=== PATIENT | female | born 1995 | race Caucasian/White ===

== ENCOUNTER 2018-12-30 15:20 | Emergency (ER) | payer MEDICAID ==
[~2018-12-30] VITALS: Ht 165.1 cm; Wt 72.7 kg
[2018-12-30 15:22] VITALS: BP 119/57
== END 2018-12-30 16:19 | disposition home or self-care (01) ==
LOC: ER 15:22
DX: F15.10 Other stimulant abuse, uncomplicated (principal); K08.89 Other specified disorders of teeth and supporting structures; R21 Rash and other nonspecific skin eruption; F17.200 Nicotine dependence, unspecified, uncomplicated; Z02.89 Encounter for other administrative examinations; Z13.89 Encounter for screening for other disorder
CPT/HCPCS: 99281

== ENCOUNTER 2019-01-19 14:52 | Emergency (ER) | payer MEDICAID ==
[~2019-01-19] VITALS: Ht 165.1 cm; Wt 52.0 kg
--- NOTE | 2019-01-19 15:08 | NUR ---
seizure pads on.nacho deleon md.We will continue to monitor.
[2019-01-19] MEDS ORDERED: normal saline 1000ML IV soln IVB ONE (15:25)
[2019-01-19 15:57] LABS: BASOPHILS # (AUTO) 0.1 X10'3 (0-0.2); BASOPHILS % (AUTO) 0.7 % (0-1); EOSINOPHILS # (AUTO) 0.1 X10'3 (0-0.9); EOSINOPHILS % (AUTO) 0.8 % (0-6); HEMOGLOBIN 12.6 g/dl (12.0-16.0); LYMPHOCYTES # (AUTO) 2.9 X10'3 (1.1-4.8); LYMPHOCYTES % (AUTO) 33.6 % (21-51); MEAN CORPUSCULAR HEMOGLOBIN 27.5 PG (27.0-31.0); MEAN CORPUSCULAR VOLUME 83.2 FL (78-98); MEAN PLATELET VOLUME 7.8 FL (7.4-10.4); MONOCYTES # (AUTO) 0.6 X10'3 (0-0.9); MONOCYTES % (AUTO) 7.5 % (2-12); NEUTROPHILS % (AUTO) 57.4 % (42-75); PLATELET COUNT 280 X10'3 (140-440); RED BLOOD COUNT 4.57 X10'6 (4.20-5.60); RED CELL DISTRIBUTION WIDTH 16.1 % (11.5-14.5); WHITE BLOOD COUNT 8.6 X10'3 (4.5-11.0)
[2019-01-19 16:10] LABS: ALANINE AMINOTRANSFERASE 29 U/L (12-78); ALBUMIN 3.6 G/DL (3.4-5.0); ALKALINE PHOSPHATASE 64 IU/L (46-116); ANION GAP 8 (8-16); ASPARTATE AMINO TRANSFERASE 18 U/L (10-37); BILIRUBIN,TOTAL 0.5 MG/DL (0.1-1.0); BLOOD UREA NITROGEN 14 MG/DL (7-18); CALCIUM 8.6 MG/DL (8.5-10.1); CHLORIDE 104 MMOL/L (99-107); GLUCOSE 86 MG/DL (70-104); POTASSIUM 4.6 MMOL/L (3.5-5.1); SODIUM 137 MMOL/L (135-145); TOTAL CARBON DIOXIDE 25.2 MMOL/L (24-32); TOTAL PROTEIN 7.1 G/DL (6.4-8.2); eGFR > 90 ML/MIN
--- NOTE | 2019-01-19 16:26 | NUR ---
DR RODRIGUEZ SPOKE WITH INTERVENTIONAL RADIOLOGIST FOR PROPER SUPPLIES.
[2019-01-19 18:02] LABS: URINE HCG NEGATIVE (NEG)
[2019-01-19 18:06] LABS: CLARITY,URINE CLEAR (Clear); COLOR,URINE YELLOW (Yellow); GLUCOSE, URINE NEGATIVE (Neg); KETONES,URINE NEGATIVE (Neg); LEUKOCYTE ESTERASE ,URINE NEGATIVE (Neg); NITRITES, URINE NEGATIVE (Neg); OCCULT BLOOD,URINE TRACE-INTACT (Neg); PH,URINE 5.5 (4.8-8.0); PROTEIN,URINE NEGATIVE (Neg); URINE AMPHETAMINE SCREEN POSITIVE (Neg); URINE BARBITUATE SCREEN NEGATIVE (Neg); URINE BENZODIAZEPINES SCREEN NEGATIVE (Neg); URINE CANNABINOID SCREEN POSITIVE (Neg); URINE COCAINE SCREEN NEGATIVE (Neg); URINE METHADONE SCREEN NEGATIVE (Neg); URINE OPIATE SCREEN NEGATIVE (Neg); URINE PHENCYCLIDINE SCREEN NEGATIVE (Neg); UROBILINOGEN,URINE 0.2 E.U/dL (0.2-1.0)
[2019-01-19] MEDS ORDERED: AMOX500C2 PO (18:12)
[2019-01-19 18:21] LABS: UA COLLECTION TYPE CLN CATCH MIDSTREAM
[2019-01-19 18:24] VITALS: BP 117/66
[2019-01-19 18:47] LABS: BACTERIA,URINE NONE SEEN /HPF (Neg); RBC,URINE 0-2 /HPF (0-2); SQUAMOUS EPITHELIAL CELL,UR FEW /LPF (FEW); WBC,URINE NONE SEEN /HPF (0-4)
== END 2019-01-19 18:20 | disposition home or self-care (01) ==
LOC: ER 14:52
DX: R56.9 Unspecified convulsions (principal); K02.9 Dental caries, unspecified; J45.909 Unspecified asthma, uncomplicated; F17.200 Nicotine dependence, unspecified, uncomplicated; F15.90 Other stimulant use, unspecified, uncomplicated; Z79.899 Other long term (current) drug therapy; W18.39XA Other fall on same level, initial encounter; Y93.89 Activity, other specified; Y92.89 Other specified places as the place of occurrence of the external cause; Y99.8 Other external cause status
CPT/HCPCS: 36415; 80053; 80305; 81001; 81025; 85025; 99284; J7030

== ENCOUNTER 2019-01-25 13:48 | Emergency (ER) | payer MEDICAID ==
[~2019-01-25] VITALS: Ht 165.1 cm; Wt 55.0 kg
[~2019-01-25 13:48] MED LIST: AMOX500C2 PO
--- NOTE | 2019-01-25 14:41 | NUR ---
I WENT IN PT'S ROOM TO TALK TO HER, PT IS NOT ANSWERING ANY QUESTIONS AT THIS TIME.
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
[2019-01-25 15:36] LABS: URINE HCG NEGATIVE (NEG)
[2019-01-25 15:41] LABS: URINE AMPHETAMINE SCREEN POSITIVE (Neg); URINE BARBITUATE SCREEN NEGATIVE (Neg); URINE BENZODIAZEPINES SCREEN NEGATIVE (Neg); URINE CANNABINOID SCREEN POSITIVE (Neg); URINE COCAINE SCREEN NEGATIVE (Neg); URINE METHADONE SCREEN NEGATIVE (Neg); URINE OPIATE SCREEN NEGATIVE (Neg); URINE PHENCYCLIDINE SCREEN NEGATIVE (Neg)
[2019-01-25 15:41] LABS: BASOPHILS # (AUTO) 0.1 X10'3 (0-0.2); BASOPHILS % (AUTO) 0.9 % (0-1); EOSINOPHILS % (AUTO) 0.3 % (0-6); HEMATOCRIT 39.9 % (35.0-45.0); HEMOGLOBIN 13.3 g/dl (12.0-16.0); LYMPHOCYTES # (AUTO) 3.1 X10'3 (1.1-4.8); LYMPHOCYTES % (AUTO) 39.7 % (21-51); MEAN CORPUSCULAR HEMOGLOBIN 27.2 PG (27.0-31.0); MEAN CORPUSCULAR HGB CONC 33.3 g/dL (33.0-36.5); MEAN CORPUSCULAR VOLUME 81.9 FL (78-98); MEAN PLATELET VOLUME 7.8 FL (7.4-10.4); MONOCYTES # (AUTO) 0.8 X10'3 (0-0.9); MONOCYTES % (AUTO) 10.7 % (2-12); NEUTROPHILS # (AUTO) 3.8 X10'3 (1.8-7.7); NEUTROPHILS % (AUTO) 48.4 % (42-75); PLATELET COUNT 307 X10'3 (140-440); RED BLOOD COUNT 4.88 X10'6 (4.20-5.60); RED CELL DISTRIBUTION WIDTH 16.1 % (11.5-14.5); WHITE BLOOD COUNT 7.8 X10'3 (4.5-11.0)
[2019-01-25 16:01] LABS: ALANINE AMINOTRANSFERASE 33 U/L (12-78); ALBUMIN 4.1 G/DL (3.4-5.0); ALKALINE PHOSPHATASE 76 IU/L (46-116); ANION GAP 11 (8-16); ASPARTATE AMINO TRANSFERASE 25 U/L (10-37); BLOOD UREA NITROGEN 13 MG/DL (7-18); BUN/CREATININE RATIO 19.7 (6.6-38.0); CALCIUM 9.1 MG/DL (8.5-10.1); CHLORIDE 105 MMOL/L (99-107); CREATININE 0.66 MG/DL (0.40-0.90); ETHANOL < 0.010 GM/DL (0.0-0.010); GLUCOSE 89 MG/DL (70-104); POTASSIUM 3.5 MMOL/L (3.5-5.1); SODIUM 142 MMOL/L (135-145); TOTAL CARBON DIOXIDE 25.9 MMOL/L (24-32); TOTAL PROTEIN 8.1 G/DL (6.4-8.2); eGFR > 90 ML/MIN
[2019-01-25 16:06] LABS: ACETAMINOPHEN < 2.0 UG/ML (10-30)
--- NOTE | 2019-01-25 16:11 | NUR ---
Pt. to bed 25 from main ED. Pt. changed into green scrubs per staff as pt. did not participate in changing. Labs and urine were obtained in main ED. Ice water provided. Belongings logged and locked up. Pt. not talking.
--- NOTE | 2019-01-25 16:55 | NUR ---
Packet was faxed to [facility]
--- NOTE | 2019-01-25 17:42 | NUR ---
Pt. lying still in bed, staring out at staff. Pt. states she "just wants a family. Just one vital sign."
--- NOTE | 2019-01-25 19:30 | NUR ---
Pt muttering "bitch" over and over again.
--- NOTE | 2019-01-25 20:00 | NUR ---
Pt agreed to take ativan but just stared at RN during administration attempt. Ativan not given.
[2019-01-25] MEDS ORDERED: LORazepam 1 MG tablet PO PRN (20:05)
--- NOTE | 2019-01-26 03:41 | NUR ---
Pt got out of bed and gave staff the middle finger on the way to the bathroom.
--- NOTE | 2019-01-26 06:10 | NUR ---
Patient making noises and cussing in her bed. She had just been awoken for vital signs. Continue to monitor.
--- NOTE | 2019-01-26 08:10 | NUR ---
Registration with patient and patient signing papers. No distress noted. Continue to monitor.
--- NOTE | 2019-01-26 08:38 | NUR ---
Patient has been throwing paper towels from her bed into the hallway. Patient has been asked not to throw paper and Meche Eaton asked patient to bulk picker her trash and each time she picks it up and throws it in the trash. Continue to monitor.
--- NOTE | 2019-01-26 09:34 | NUR ---
Tech checked the bathroom a little while after patient had gone and found patient had deficated on the floor in the corner of the bathroom. Patient asked about it and she laughed. Patient is laughing inappropriately by herself, in her bed. Then patient was throwing her water. Patient appears to be very psychotic.
--- NOTE | 2019-01-26 10:55 | NUR ---
Patient sitting in her bed and moving her arms around. Patient appears psychotic. Continue to monitor.
--- NOTE | 2019-01-26 12:05 | NUR ---
Patient laying in bed awake. No distress observed. Continue to monitor.
--- NOTE | 2019-01-26 14:48 | NUR ---
Patient playing with her food. No distress observed. Continue to monitor.
[2019-01-26 15:06] LABS: CLARITY,URINE CLOUDY (Clear); COLOR,URINE YELLOW (Yellow); GLUCOSE, URINE NEGATIVE (Neg); KETONES,URINE TRACE mg/dl (Neg); LEUKOCYTE ESTERASE ,URINE NEGATIVE (Neg); NITRITES, URINE NEGATIVE (Neg); OCCULT BLOOD,URINE NEGATIVE (Neg); PROTEIN,URINE NEGATIVE (Neg); UROBILINOGEN,URINE 0.2 E.U/dL (0.2-1.0)
[2019-01-26 15:27] LABS: UA COLLECTION TYPE CLN CATCH MIDSTREAM
[2019-01-26 16:16] LABS: AMORPHOUS URATES 4+; WBC,URINE 0-4 /HPF (0-4)
[2019-01-26 16:17] LABS: BACTERIA,URINE FEW /HPF (Neg); MUCUS STRANDS MODERATE /LPF (Neg); RBC,URINE NONE SEEN /HPF (0-2); SQUAMOUS EPITHELIAL CELL,UR MODERATE /LPF (FEW)
--- NOTE | 2019-01-26 16:53 | NUR ---
ARCHIE FROM [facility] CALLED AND NEEDED TSH, URINE AND PREG TEST. RESULTS FAXED TO [phone]
--- NOTE | 2019-01-26 17:13 | NUR ---
Patient sitting up in bed, no distress observed. Continue to monitor.
--- NOTE | 2019-01-26 19:30 | NUR ---
PT messed her table with food from food tray. Food 95% gone. Tray taken and put away.
--- NOTE | 2019-01-26 20:30 | NUR ---
Pt laying in bed with feet hanging off side of bed. There is some type of stare present towards staff. Will continue to monitor.
--- NOTE | 2019-01-27 02:30 | NUR ---
PT with covers drawn over her moaning with rhythmic movements. Redirected pt. Will continue to monitor.
--- NOTE | 2019-01-27 05:28 | NUR ---
Pt has been sitting up in bed laughing for 1.5 hrs.
[2019-01-27 05:50] VITALS: BP 105/60
--- NOTE | 2019-01-27 06:31 | NUR ---
PT is awake, alert and laying on right side no signs of distress, will continue to monitor patient.
--- NOTE | 2019-01-27 07:30 | NUR ---
Patient sitting up in bed, staring at nurse's station. no signs of agitation. respirations even, unlabored.
--- NOTE | 2019-01-27 08:31 | NUR ---
Spoke to Leroy Rest PADD on phone and gave nurse to nurse report. RN states she is going to speak with doctor there and get back to us.
--- NOTE | 2019-01-27 09:40 | NUR ---
Patient sitting up in bed, staring ahead of her. no distress. not responding to me talking to her
--- NOTE | 2019-01-27 10:27 | NUR ---
Asked patient if she was doing okay and if we were pronouncing her name correctly. Patient responded appropriately. States doing fine at this time.
--- NOTE | 2019-01-27 10:47 | NUR ---
Second page was sent for [facility] doctors to evaluate patient
--- NOTE | 2019-01-27 11:47 | NUR ---
Patient laying with covers pulled over her head, told patient we would need to see her head. Patient was compliant and listened to instructions.
--- NOTE | 2019-01-27 13:30 | NUR ---
Patient being discharged and transportation driver's education instructor here to garbage pick up man patient.
--- NOTE | 2019-01-27 14:03 | NUR ---
Found multiple areas of crayon drawings on patient's bed and on the top of her side table.
== END 2019-01-27 13:30 ==
LOC: ER 13:48
DX: F94.0 Selective mutism (principal); F15.10 Other stimulant abuse, uncomplicated; F20.9 Schizophrenia, unspecified; F43.10 Post-traumatic stress disorder, unspecified; J45.909 Unspecified asthma, uncomplicated; Z79.899 Other long term (current) drug therapy
CPT/HCPCS: 36415; 80053; 80305; 80320; 80329; 81001; 81025; 84443; 85025; 99285

== ENCOUNTER 2019-12-14 10:49 | Emergency (ER) | payer MEDICAID ==
[~2019-12-14] VITALS: Ht 165.1 cm; Wt 77.3 kg
[2019-12-14 11:56] LABS: BASOPHILS # (AUTO) 0.1 X10'3 (0-0.2); BASOPHILS % (AUTO) 0.5 % (0-1); EOSINOPHILS # (AUTO) 0.3 X10'3 (0-0.9); EOSINOPHILS % (AUTO) 2.7 % (0-6); HEMATOCRIT 43.9 % (35.0-45.0); HEMOGLOBIN 14.7 g/dl (12.0-16.0); LYMPHOCYTES # (AUTO) 3.6 X10'3 (1.1-4.8); LYMPHOCYTES % (AUTO) 33.1 % (21-51); MEAN CORPUSCULAR HEMOGLOBIN 29.5 PG (27.0-31.0); MEAN CORPUSCULAR HGB CONC 33.6 g/dL (33.0-36.5); MEAN CORPUSCULAR VOLUME 87.8 FL (78-98); MEAN PLATELET VOLUME 8.8 FL (7.4-10.4); MONOCYTES % (AUTO) 8.9 % (2-12); NEUTROPHILS % (AUTO) 54.8 % (42-75); PLATELET COUNT 251 X10'3 (140-440); RED BLOOD COUNT 4.99 X10'6 (4.20-5.60); RED CELL DISTRIBUTION WIDTH 13.5 % (11.5-14.5)
[2019-12-14 12:08] LABS: ALANINE AMINOTRANSFERASE 20 U/L (12-78); ALBUMIN 3.7 G/DL (3.4-5.0); ALBUMIN/GLOBULIN RATIO 1.1 (1.1-1.5); ALKALINE PHOSPHATASE 66 IU/L (46-116); ANION GAP 5 (8-16); ASPARTATE AMINO TRANSFERASE 15 U/L (10-37); BILIRUBIN,TOTAL 0.7 MG/DL (0.1-1.0); BLOOD UREA NITROGEN 12 MG/DL (7-18); BUN/CREATININE RATIO 15.4 (6.6-38.0); CALCIUM 8.7 MG/DL (8.5-10.1); CHLORIDE 108 MMOL/L (99-107); CREATININE 0.78 MG/DL (0.40-0.90); GLUCOSE 84 MG/DL (70-104); POTASSIUM 4.1 MMOL/L (3.5-5.1); SODIUM 142 MMOL/L (135-145); TOTAL CARBON DIOXIDE 29.2 MMOL/L (24-32); eGFR 90 ML/MIN
[2019-12-14 12:21] LABS: ETHANOL < 0.010 GM/DL (0.0-0.010)
[2019-12-14 12:26] LABS: CLARITY,URINE SLIGHTLY CLOUDY (Clear); COLOR,URINE YELLOW (Yellow); GLUCOSE, URINE NEGATIVE (Neg); KETONES,URINE NEGATIVE (Neg); LEUKOCYTE ESTERASE ,URINE SMALL (Neg); NITRITES, URINE NEGATIVE (Neg); OCCULT BLOOD,URINE NEGATIVE (Neg); PROTEIN,URINE NEGATIVE (Neg); URINE HCG NEGATIVE (NEG); UROBILINOGEN,URINE 0.2 E.U/dL (0.2-1.0)
[2019-12-14 12:27] LABS: UA COLLECTION TYPE CLN CATCH MIDSTREAM
[2019-12-14 12:32] LABS: URINE AMPHETAMINE SCREEN POSITIVE (Neg); URINE BARBITUATE SCREEN NEGATIVE (Neg); URINE BENZODIAZEPINES SCREEN NEGATIVE (Neg); URINE CANNABINOID SCREEN POSITIVE (Neg); URINE COCAINE SCREEN NEGATIVE (Neg); URINE METHADONE SCREEN NEGATIVE (Neg); URINE OPIATE SCREEN NEGATIVE (Neg); URINE PHENCYCLIDINE SCREEN NEGATIVE (Neg)
[2019-12-14 12:37] LABS: MUCUS STRANDS MANY /LPF (Neg); SQUAMOUS EPITHELIAL CELL,UR MANY /LPF (FEW)
[2019-12-14 12:39] LABS: BACTERIA,URINE FEW /HPF (Neg); RBC,URINE 0-2 /HPF (0-2); TRANSITIONAL EPI CELLS,URINE FEW /HPF; WBC,URINE 30-50 /HPF (0-4)
--- NOTE | 2019-12-14 12:46 | NUR ---
pt denies s/h/i @ this itme. She is responding to internal stimuli AEB her laughing and talking when none present. Tangential thoughts noted also. Pt moderately restless. She can be redirected for brief periods.
[2019-12-14] MEDS: cephalexin 250mg capsule PO SCH ×2 (13:18→20:56)
--- NOTE | 2019-12-14 13:29 | NUR ---
Pt. brought back to overflow room 24 with meal tray, pt. laying on side in bed eating meal. Pt. responding to internal stimuli as evidenced by laughing and talking with no one else present. Pt. appears restless, respirations WNL, no evidence of distress.
[2019-12-14] MEDS ORDERED: hydrOXYzine 25 MG tablet PO ONE (13:50)
[2019-12-14] MEDS ORDERED: nicotine 21mg patch - 24 hr TD ONE (13:50)
[2019-12-14] MEDS ORDERED: UNABLE TO OBTAIN (14:21)
--- NOTE | 2019-12-14 14:23 | NUR ---
Unable to obtain med rec due to patient not knowing current medications, pt. states she does take medications, but does not know the medications or purpose. No recent medications on external med history. Per EMS family reports pt. is non-compliant on medications. Addendum: 12/14/19 at 1604 by JOVANA Attempted to contact family by phone to obtain medication history, no milling supervisor. GENARO Mercedes performed a [employer] search, no information found. Per EMS report pt. previously on "Risperidol and Klonipin"
--- NOTE | 2019-12-14 14:28 | NUR ---
Pt. laying in bed on right side, talking to self.
--- NOTE | 2019-12-14 14:46 | NUR ---
Pt. moved to overflow bed 21 due to verbal argument between her and the pt. in bed 23. Argument began due to pt. in bed 23 becoming agitated due to constant talking coming from pt. Pt. states she "hears people laughing at her". Pt. requested milk, cheese stick, and crakers. Pt. given milk, cheese stick, and crackers.
--- NOTE | 2019-12-14 15:26 | NUR ---
Discussed pt's increased restlessness and new onset hypersexual bx with GENARO Mercedes. New order for Ativan 1mg received. New order communicated to Primary RN Elvin.
[2019-12-14] MEDS ORDERED: LORazepam 1 MG tablet PO ONE (15:30)
--- NOTE | 2019-12-14 16:03 | NUR ---
Pt. experienced new onset of nausea and vomiting. Order for zofran obtained.
[2019-12-14] MEDS ORDERED: ondansetron 4mg rapidly disintigrating tab PO ONE (16:05)
--- NOTE | 2019-12-14 16:15 | NUR ---
Pt. in bed crying, appears restless with frequent position changes, respirations appear even and unlabored.
--- NOTE | 2019-12-14 16:29 | NUR ---
Pt. has vomited again, order obtained for compazine. Pt. is yelling non-coherently, order obtained for ativan.
[2019-12-14] MEDS ORDERED: LORazepam 2 mg/ml vial IM ONE (16:30)
[2019-12-14] MEDS ORDERED: proCHLORperazine 10 MG/2 ml inj IM ONE (16:30)
--- NOTE | 2019-12-14 17:28 | NUR ---
Pt. resting quietly on left side, respirations even and unlabored, no signs or symptoms of distress.
--- NOTE | 2019-12-14 18:11 | NUR ---
[facility] bedsided with pt. Addendum: 12/14/19 at 1827 by STEVEEY Per [facility], pt. too sleepy to assess.
--- NOTE | 2019-12-14 18:34 | NUR ---
Pt. resting quietly in bed, respirations WNL, even and unlabored. No signs or symptoms of distress. Pt. brought meal tray bedside, pt. currently not eating meal offered.
--- NOTE | 2019-12-14 20:25 | NUR ---
Pt. awake intermittently, when awake eating small amounts of food from meal tray.
--- NOTE | 2019-12-14 23:45 | NUR ---
Pt. resting quietly repirations WNL even and unlabored, no signs or symptoms of distress.
--- NOTE | 2019-12-15 01:15 | NUR ---
Pt. resting quietly on left side, respirations WNL even and unlabored, no signs or symptoms of distress.
--- NOTE | 2019-12-15 01:39 | NUR ---
pt appears to be sleeping peacefully on left side, respirations even and unlabored, no s/s distress at this time.
--- NOTE | 2019-12-15 02:32 | NUR ---
pt appears to be sleeping lying on left side. HOB 30 degrees. respirations even and unlabored, no s/s distress at this time
--- NOTE | 2019-12-15 03:30 | NUR ---
pt appears to be sleeping lying on left side. HOB 30 degrees. respirations even and unlabored, no s/s distress at this time. pt repositioning self in bed.
--- NOTE | 2019-12-15 04:42 | NUR ---
pt appears to be sleeping lying on right side. pt in supine position. respirations even and unlabored, no s/s distress at this time
--- NOTE | 2019-12-15 05:49 | NUR ---
pt ambulated to bathroom without issue. returned to bed and now appears to be sleeping lying on left side. pt in supine position. respirations even and unlabored, no s/s distress at this time
--- NOTE | 2019-12-15 06:38 | NUR ---
pt is resting in bed no issues at this time
--- NOTE | 2019-12-15 07:30 | NUR ---
pt is awake
[2019-12-15] MEDS: cephalexin 250mg capsule PO SCH ×2 (08:35→20:22)
--- NOTE | 2019-12-15 08:52 | NUR ---
pt is with [facility]
--- NOTE | 2019-12-15 09:20 | NUR ---
pt wanting to leave the unit. she is asking to take take a shower
[2019-12-15] MEDS ORDERED: diphenhydrAMINE 50 mg/ml inj IM ONE (09:35)
[2019-12-15] MEDS ORDERED: LORazepam 2 mg/ml vial IM ONE (09:35)
[2019-12-15] MEDS ORDERED: haloperidol lactate 5mg/ml inj IM ONE (09:35)
--- NOTE | 2019-12-15 09:38 | NUR ---
breaking primary RN. pt is being eval by [facility], he states he is going to keep her on a 5150, ptis tearful and not wanting to talk to him, she is now ambulating to the bathroom, security standing by
--- NOTE | 2019-12-15 09:43 | NUR ---
pt was retching gave vomit bag, now sticking her finger down her throat to make herself vomit
--- NOTE | 2019-12-15 09:47 | NUR ---
patient again requesting shower, due to vomiting, she was given washcloths, soap and basin etc to clean up in the bathroom
--- NOTE | 2019-12-15 11:00 | NUR ---
pt is sleeping after meds
--- NOTE | 2019-12-15 12:00 | NUR ---
BREAKING PRIMNARY RN, PT IS ASLEEP, REGULAR BREATHING OBSERVED, NO S/S OF AGITATION
--- NOTE | 2019-12-15 13:00 | NUR ---
pt is sleeping. no concerns at this time.
--- NOTE | 2019-12-15 14:00 | NUR ---
pt continues to be sleeping. no issues
--- NOTE | 2019-12-15 15:00 | NUR ---
pt is sleeping
--- NOTE | 2019-12-15 15:00 | NUR ---
Frances acharya in [facility] - 12/15/[address] waiting for social studies department chair regarding dc
--- NOTE | 2019-12-15 16:34 | NUR ---
Frances acharya in [facility] - 12/15/[address] mother and father both called to talking about dc plan. mother's voicemail is not set up and message left for father
--- NOTE | 2019-12-15 16:36 | NUR ---
pt is awake
--- NOTE | 2019-12-15 17:45 | NUR ---
krishna salgado called for a nurse to nurse
--- NOTE | 2019-12-15 18:14 | NUR ---
pt is resting
--- NOTE | 2019-12-15 18:30 | NUR ---
The patient has been accepted at [facility] by Dr. Kelley and will be transported via [facility] staff tomorrow between 0800 and 0830.
--- NOTE | 2019-12-15 18:33 | NUR ---
The patient awakened for her evening meal
[2019-12-15] MEDS ORDERED: ondansetron 4mg rapidly disintigrating tab PO STA (19:44)
--- NOTE | 2019-12-15 19:44 | NUR ---
PT NEEDING [facility]. ED PROVIDER UPDATED AND GAVE VERBAL ORDER FOR MED.
--- NOTE | 2019-12-15 19:51 | NUR ---
The patient was up to use the bathroom and vomited on the floor. Zofran given.
--- NOTE | 2019-12-15 20:34 | NUR ---
The patient is resting quietly on her bed. Was awakened briefly for ABX.
--- NOTE | 2019-12-15 22:32 | NUR ---
The patient is resting on her bed and appears to be sleeping
--- NOTE | 2019-12-16 00:04 | NUR ---
The patient appears to be sleeping
--- NOTE | 2019-12-16 02:16 | NUR ---
The patient appears to be sleeping
--- NOTE | 2019-12-16 03:46 | NUR ---
The patient is awake but resting quietly on her bed
--- NOTE | 2019-12-16 05:42 | NUR ---
PT MOVED TO ED ROOM14. PT AMBULATED TO ROOM WITH NO ASSIST AND CONTINUES TO SLEEP WITH NO SIGNS OF DISTRESS OR DISCOMFORT. WILL CONTINUE TO MONITOR.
--- NOTE | 2019-12-16 06:22 | NUR ---
PT SLEEPING IN LFT LATERA POSITION ,NO DISTRESS NOTED ,REPORT TAKEN FROM JAROD PINON.WILL CONT TO MONITOR.RR UNLABORED AND EVEN.
[2019-12-16 07:06] VITALS: BP 101/63
[2019-12-16] MEDS: cephalexin 250mg capsule PO SCH (08:49)
== END 2019-12-16 09:06 | disposition home or self-care (01) ==
LOC: ER 10:49
DX: F19.10 Other psychoactive substance abuse, uncomplicated (principal); N39.0 Urinary tract infection, site not specified; R45.851 Suicidal ideations; J45.909 Unspecified asthma, uncomplicated; F20.9 Schizophrenia, unspecified; F15.90 Other stimulant use, unspecified, uncomplicated
CPT/HCPCS: 36415; 80053; 80305; 80320; 81001; 81025; 84443; 85025; 96372; 99285; J0780; J1200; J1630; J2060; Q0177; 12034

== ENCOUNTER 2020-06-07 19:18 | Emergency (ER) | payer MEDICAID ==
[~2020-06-07 19:18] MED LIST changes: -AMOX500C2 PO; +ONDA4TAB6 PO; +UNABLE TO OBTAIN
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
--- NOTE | 2020-06-07 20:30 | NUR ---
refused to put slippers on feet states she is very hot and the people in the tank said no to that idea. I asked if the voices she heres tell her to do anything she said yes thats why she is here right now. Rolled over and placed blanket over head and asked to go to sleep that the light bothers her eyes.
--- NOTE | 2020-06-07 21:30 | NUR ---
lying on right side eyes closed no signs of distress.
[2020-06-07 21:37] LABS: BASOPHILS # (AUTO) 0.1 X10'3 (0-0.2); BASOPHILS % (AUTO) 0.6 % (0-1); EOSINOPHILS # (AUTO) 0.1 X10'3 (0-0.9); EOSINOPHILS % (AUTO) 0.4 % (0-6); HEMATOCRIT 40.2 % (35.0-45.0); HEMOGLOBIN 13.4 g/dl (12.0-16.0); LYMPHOCYTES # (AUTO) 2.6 X10'3 (1.1-4.8); LYMPHOCYTES % (AUTO) 16.1 % (21-51); MEAN CORPUSCULAR HEMOGLOBIN 28.5 PG (27.0-31.0); MEAN CORPUSCULAR HGB CONC 33.3 g/dL (33.0-36.5); MEAN CORPUSCULAR VOLUME 85.6 FL (78-98); MEAN PLATELET VOLUME 7.9 FL (7.4-10.4); MONOCYTES # (AUTO) 0.9 X10'3 (0-0.9); MONOCYTES % (AUTO) 5.6 % (2-12); NEUTROPHILS # (AUTO) 12.7 X10'3 (1.8-7.7); NEUTROPHILS % (AUTO) 77.3 % (42-75); PLATELET COUNT 268 X10'3 (140-440); RED BLOOD COUNT 4.69 X10'6 (4.20-5.60); RED CELL DISTRIBUTION WIDTH 14.2 % (11.5-14.5); WHITE BLOOD COUNT 16.4 X10'3 (4.5-11.0)
[2020-06-07 21:52] LABS: ALANINE AMINOTRANSFERASE 26 U/L (12-78); ALBUMIN 3.4 G/DL (3.4-5.0); ALKALINE PHOSPHATASE 77 IU/L (46-116); ANION GAP 5 (8-16); ASPARTATE AMINO TRANSFERASE 14 U/L (10-37); BILIRUBIN,TOTAL 0.4 MG/DL (0.1-1.0); BLOOD UREA NITROGEN 11 MG/DL (7-18); BUN/CREATININE RATIO 13.8 (6.6-38.0); CALCIUM 8.5 MG/DL (8.5-10.1); CHLORIDE 105 MMOL/L (99-107); GLUCOSE 142 MG/DL (70-104); POTASSIUM 3.6 MMOL/L (3.5-5.1); SODIUM 140 MMOL/L (135-145); TOTAL CARBON DIOXIDE 29.9 MMOL/L (24-32); TOTAL PROTEIN 6.7 G/DL (6.4-8.2); eGFR 87 ML/MIN
[2020-06-07 22:01] LABS: ETHANOL < 0.010 GM/DL (0.0-0.010)
--- NOTE | 2020-06-07 22:30 | NUR ---
additional cranberry juice given patietn unable to void refuses i&o cath Addendum: 06/08/20 at 0118 by TAMRA typo for the word patient in above
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
[2020-06-07 23:28] LABS: CLARITY,URINE CLEAR (Clear); COLOR,URINE YELLOW (Yellow); GLUCOSE, URINE NEGATIVE (Neg); KETONES,URINE NEGATIVE (Neg); NITRITES, URINE NEGATIVE (Neg); OCCULT BLOOD,URINE NEGATIVE (Neg); PROTEIN,URINE TRACE mg/dl (Neg); URINE HCG NEGATIVE (NEG)
[2020-06-07 23:31] LABS: LEUKOCYTE ESTERASE ,URINE NEGATIVE (Neg); UROBILINOGEN,URINE 0.2 E.U/dL (0.2-1.0)
[2020-06-07 23:34] LABS: UA COLLECTION TYPE VOIDED
[2020-06-07 23:35] LABS: BACTERIA,URINE 2+ /HPF (Neg); RBC,URINE 0-2 /HPF (0-2); SQUAMOUS EPITHELIAL CELL,UR MANY /LPF (FEW)
[2020-06-07 23:36] LABS: MUCUS STRANDS MODERATE /LPF (Neg)
[2020-06-07 23:40] LABS: URINE AMPHETAMINE SCREEN POSITIVE (Neg); URINE BARBITUATE SCREEN NEGATIVE (Neg); URINE BENZODIAZEPINES SCREEN NEGATIVE (Neg); URINE CANNABINOID SCREEN POSITIVE (Neg); URINE COCAINE SCREEN NEGATIVE (Neg); URINE METHADONE SCREEN NEGATIVE (Neg); URINE OPIATE SCREEN NEGATIVE (Neg); URINE PHENCYCLIDINE SCREEN NEGATIVE (Neg)
--- NOTE | 2020-06-08 00:30 | NUR ---
lying supine respirations even and unlabored no signs of distress.
--- NOTE | 2020-06-08 01:41 | NUR ---
no change, lyin ilir left side eupneic respirations. No signs of distress
--- NOTE | 2020-06-08 02:30 | NUR ---
sleeping on left side no distress observed.
--- NOTE | 2020-06-08 03:30 | NUR ---
eyes closed supine no compaints or signs of distress respiration even and unlabored
--- NOTE | 2020-06-08 04:30 | NUR ---
sleeping on right side no distress observed
--- NOTE | 2020-06-08 05:35 | NUR ---
uneventful night. Patient currnetly sleeping
--- NOTE | 2020-06-08 06:00 | NUR ---
faxed packet to [facility]
--- NOTE | 2020-06-08 06:00 | NUR ---
faxed packet to [facility]
--- NOTE | 2020-06-08 06:28 | NUR ---
Patient on left side asleep.
--- NOTE | 2020-06-08 08:28 | NUR ---
patient up to the bathroom.
--- NOTE | 2020-06-08 09:00 | NUR ---
denies si and hi at this time,patient calm and cooperative with staff.Reports she does have history of si,overdosed herself x1.
--- NOTE | 2020-06-08 09:21 | NUR ---
patient on right side sleeping.
[2020-06-08 09:32] VITALS: BP 103/64
--- NOTE | 2020-06-08 09:40 | NUR ---
breaking primary RN, pt is covered in blankets, regular breathing present, no needs at this time
--- NOTE | 2020-06-08 10:16 | NUR ---
Miriam from [facility] here to speak with patient.
--- NOTE | 2020-06-08 10:21 | NUR ---
patient reports frequency of urination,denies hematuria/dysuria,reports she was taking antibiotic for uti prior to admission.Dr. Muro made aware,new order noted and carried out.
[2020-06-08] MEDS ORDERED: nitrofuran/nitrofuran macrocrysal 100 MG capsule PO SCH (10:29)
--- NOTE | 2020-06-08 11:34 | NUR ---
patient on left side asleep,first dose of antibiotic/uti given,[facility] to plan on discharging patient.
--- NOTE | 2020-06-08 13:37 | NUR ---
angela with [facility] is at bedside talking with pt, she is supine in bed, calmly talking to him
--- NOTE | 2020-06-08 14:19 | NUR ---
called [employer], they will call when on their way
--- NOTE | 2020-06-08 14:41 | NUR ---
PT WAITING FOR DC AND HAS CHANGED INTO [employer] [employer]. PT SITTING UP IN BED WAITING FOR [employer] TO GET HERE.
== END 2020-06-08 15:00 | disposition home or self-care (01) ==
LOC: ER 19:18
DX: R45.851 Suicidal ideations (principal); F29 Unspecified psychosis not due to a substance or known physiological condition; J45.909 Unspecified asthma, uncomplicated; F20.9 Schizophrenia, unspecified; F15.90 Other stimulant use, unspecified, uncomplicated; Z79.899 Other long term (current) drug therapy
CPT/HCPCS: 36415; 80053; 80305; 80320; 81001; 81025; 84443; 85025; 99285

== ENCOUNTER 2020-10-03 14:27 | Emergency (ER) | payer MEDICAID ==
[~2020-10-03] VITALS: Ht 165.1 cm; Wt 94.1 kg
[~2020-10-03 14:27] MED LIST changes: +LIDOcaine 1% 30ml preserv. free vial ONE
[2020-10-03 14:37] VITALS: BP 126/73
[2020-10-03] MEDS ORDERED: TETanus/Pertussis (Acell)/Diphther VAC/PF (Tdap-Adult) 0.5ml syringe IMVAC ONE (15:25)
[2020-10-03] MEDS ORDERED: CEPH250T PO (15:49)
[2020-10-03] MEDS ORDERED: SULF1TAB45 PO (15:49)
[2020-10-03] MEDS ORDERED: ONDA4TAB6 PO (22:23)
[2020-10-03] MEDS ORDERED: PANT20TA18 PO (22:23)
== END 2020-10-03 16:05 | disposition home or self-care (01) ==
LOC: ER 14:28
DX: L02.511 Cutaneous abscess of right hand (principal); L03.011 Cellulitis of right finger; J45.909 Unspecified asthma, uncomplicated; F20.9 Schizophrenia, unspecified; F15.90 Other stimulant use, unspecified, uncomplicated
CPT/HCPCS: 26010; 90471; 90715; 99283; J2001

== ENCOUNTER 2020-10-03 18:22 | Emergency (ER) | payer MEDICAID ==
[~2020-10-03] VITALS: Ht 165.1 cm; Wt 93.0 kg
[~2020-10-03 18:22] MED LIST changes: +CEPH250T PO; -LIDOcaine 1% 30ml preserv. free vial ONE; +SULF1TAB45 PO
[2020-10-03 18:42] VITALS: BP 107/64
[2020-10-03 19:34] LABS: BASOPHILS # (AUTO) 0.1 X10'3 (0-0.2); BASOPHILS % (AUTO) 0.4 % (0-1); EOSINOPHILS % (AUTO) 0.1 % (0-6); HEMATOCRIT 43.1 % (35.0-45.0); HEMOGLOBIN 14.6 g/dl (12.0-16.0); LYMPHOCYTES # (AUTO) 3.3 X10'3 (1.1-4.8); LYMPHOCYTES % (AUTO) 16.7 % (21-51); MEAN CORPUSCULAR HEMOGLOBIN 29.1 PG (27.0-31.0); MEAN CORPUSCULAR HGB CONC 33.9 g/dL (33.0-36.5); MEAN PLATELET VOLUME 7.7 FL (7.4-10.4); MONOCYTES # (AUTO) 1.3 X10'3 (0-0.9); MONOCYTES % (AUTO) 6.6 % (2-12); NEUTROPHILS % (AUTO) 76.2 % (42-75); PLATELET COUNT 427 X10'3 (140-440); RED BLOOD COUNT 5.01 X10'6 (4.20-5.60); RED CELL DISTRIBUTION WIDTH 13.7 % (11.5-14.5); WHITE BLOOD COUNT 19.7 X10'3 (4.5-11.0)
[2020-10-03 19:36] LABS: ALANINE AMINOTRANSFERASE 34 U/L (12-78); ALBUMIN 3.7 G/DL (3.4-5.0); ALBUMIN/GLOBULIN RATIO 0.9 (1.1-1.5); ALKALINE PHOSPHATASE 95 IU/L (46-116); ANION GAP 8 (8-16); ASPARTATE AMINO TRANSFERASE 15 U/L (10-37); BILIRUBIN,TOTAL 0.6 MG/DL (0.1-1.0); BLOOD UREA NITROGEN 10 MG/DL (7-18); BUN/CREATININE RATIO 16.1 (6.6-38.0); CALCIUM 9.6 MG/DL (8.5-10.1); CHLORIDE 102 MMOL/L (99-107); CREATININE 0.62 MG/DL (0.40-0.90); GLUCOSE 98 MG/DL (70-104); LIPASE 193 U/L (73-393); POTASSIUM 3.8 MMOL/L (3.5-5.1); SODIUM 139 MMOL/L (135-145); TOTAL CARBON DIOXIDE 29.3 MMOL/L (24-32); TOTAL PROTEIN 7.9 G/DL (6.4-8.2); eGFR > 90 ML/MIN
--- NOTE | 2020-10-03 20:27 | NUR ---
Patient's grandmother would like us to call if patient needs a ride home [phone]
[2020-10-03 20:56] LABS: CLARITY,URINE SLIGHTLY CLOUDY (Clear); COLOR,URINE YELLOW (Yellow); GLUCOSE, URINE NEGATIVE (Neg); KETONES,URINE 15 mg/dl (Neg); LEUKOCYTE ESTERASE ,URINE TRACE (Neg); NITRITES, URINE NEGATIVE (Neg); OCCULT BLOOD,URINE NEGATIVE (Neg); PROTEIN,URINE TRACE mg/dl (Neg)
[2020-10-03 21:00] LABS: UA COLLECTION TYPE CLN CATCH MIDSTREAM
[2020-10-03] MEDS ORDERED: mag hydrox/Alum hydrox/simeth 30ml oral suspension PO ONE (21:00)
[2020-10-03] MEDS ORDERED: pantoprazole 40 MG vial IV ONE (21:00)
[2020-10-03] MEDS ORDERED: proCHLORperazine 10 MG/2 ml inj IV ONE (21:00)
[2020-10-03] MEDS ORDERED: normal saline 1000ml 1,000 ML IV ONE (21:00)
[2020-10-03] MEDS ORDERED: LIDOcaine Viscous 15ml cup MM ONE (21:00)
[2020-10-03] MEDS ORDERED: diphenhydrAMINE 50 mg/ml inj IV ONE (21:00)
[2020-10-03 21:04] LABS: URINE HCG NEGATIVE (NEG)
[2020-10-03 21:10] LABS: RBC,URINE 0-2 /HPF (0-2)
[2020-10-03 21:11] LABS: BACTERIA,URINE FEW /HPF (Neg); MUCUS STRANDS MANY /LPF (Neg); SQUAMOUS EPITHELIAL CELL,UR MODERATE /LPF (FEW)
[2020-10-03] MEDS ORDERED: ONDA4TAB6 PO (22:23)
[2020-10-03] MEDS ORDERED: PANT20TA18 PO (22:23)
--- NOTE | 2020-10-06 18:08 | NUR ---
PT CALLED, NO ANSWER, MESSAGE LEFT TO CALL REGARDING LAST VISIT AND HOS SHE IS DOING.
== END 2020-10-03 23:09 | disposition home or self-care (01) ==
LOC: ER 18:22
DX: R11.2 Nausea with vomiting, unspecified (principal); N89.8 Other specified noninflammatory disorders of vagina; R10.13 Epigastric pain; J45.909 Unspecified asthma, uncomplicated; F20.9 Schizophrenia, unspecified; F12.90 Cannabis use, unspecified, uncomplicated; F15.90 Other stimulant use, unspecified, uncomplicated; Z79.899 Other long term (current) drug therapy
CPT/HCPCS: 36415; 80053; 81001; 81025; 83690; 85025; 87077; 87088; 87186; 96374; 96375; 99284; C9113; J0780; J1200; J7030

== ENCOUNTER 2022-02-09 11:01 | Emergency (ER) | payer MEDICAID ==
[~2022-02-09] VITALS: Ht 165.1 cm; Wt 81.8 kg
[~2022-02-09 11:01] MED LIST changes: -CEPH250T PO; +PANT20TA18 PO; -SULF1TAB45 PO
[2022-02-09 11:21] VITALS: BP 122/80
--- NOTE | 2022-02-09 11:30 | NUR ---
[employer] OFFICER BROUGHT PT IN FOR MED CLEARANCE AND A LEGEL DRAW FOR RETIREMENT. LAB WAS DRAWN AND LEFT FOR RETIREMENT. TRIAGE WAS COMPLETED AND PROVIDER NOTIFIED THAT THE OFFICER TOOK PT TO RETIREMENT WITHOUT BEING DC.
== END 2022-02-09 11:50 ==
LOC: ER 11:01
DX: F15.90 Other stimulant use, unspecified, uncomplicated (principal); R00.0 Tachycardia, unspecified; J45.909 Unspecified asthma, uncomplicated; F20.9 Schizophrenia, unspecified; F12.90 Cannabis use, unspecified, uncomplicated; Z79.899 Other long term (current) drug therapy
CPT/HCPCS: 99283

== ENCOUNTER 2022-04-16 10:29 | Emergency (ER) | payer MEDICAID ==
[~2022-04-16] VITALS: Ht 165.1 cm; Wt 102.3 kg
[2022-04-16 10:52] VITALS: BP 116/79
[2022-04-16] MEDS ORDERED: CEPH-585 PO (12:57)
[2022-04-16] MEDS ORDERED: bacitracin 15gm ointment TP ONE (13:00)
== END 2022-04-16 13:13 | disposition home or self-care (01) ==
LOC: ER 10:31
DX: L02.416 Cutaneous abscess of left lower limb (principal); F17.200 Nicotine dependence, unspecified, uncomplicated; F12.90 Cannabis use, unspecified, uncomplicated; F15.20 Other stimulant dependence, uncomplicated
CPT/HCPCS: 99283